=== PATIENT | male | born 1995 | race Two or more races ===

== ENCOUNTER 2019-07-16 20:00 | Emergency (ER) | payer SELFPAY ==
[~2019-07-16] VITALS: Ht 190.5 cm; Wt 89.8 kg
[2019-07-16 20:07] VITALS: BP 122/67
--- NOTE | 2019-07-16 20:45 | NUR ---
xray at bedside
== END 2019-07-16 21:42 | disposition home or self-care (01) ==
LOC: ER 20:03
DX: S93.502A Unspecified sprain of left great toe, initial encounter (principal); X58.XXXA Exposure to other specified factors, initial encounter; Y93.51 Activity, roller skating (inline) and skateboarding; Y92.331 Roller skating rink as the place of occurrence of the external cause; Y99.8 Other external cause status
CPT/HCPCS: 73660-TC

== ENCOUNTER 2019-08-16 09:52 | Emergency (ER) | payer SELFPAY ==
[~2019-08-16] VITALS: Ht 188 cm; Wt 90.7 kg
--- NOTE | 2019-08-16 10:05 | NUR ---
CAME IN FOR R KNEE PAIN S/P RUNNING 3 DAYS AGO, HOOKED TO MONITOR, PROVIDED W WARM BLANKET, PATIENT AOx4 , BREATHING EVEN AND UNLABORED, AWAITING MD DONALD. KEPT SAFE AND COMFORTABLE.
--- NOTE | 2019-08-16 10:18 | NUR ---
DR CHAVEZ AT BEDSIDE
--- NOTE | 2019-08-16 10:48 | NUR ---
Patient discharged to home in stable condition. Written and verbal after care instructions given. Patient verbalizes understanding of instruction.
[2019-08-16 10:55] VITALS: BP 134/71
== END 2019-08-16 10:48 | disposition home or self-care (01) ==
LOC: ER 09:56
DX: S83.8X1A Sprain of other specified parts of right knee, initial encounter (principal); X58.XXXA Exposure to other specified factors, initial encounter; Y93.02 Activity, running; Y92.89 Other specified places as the place of occurrence of the external cause; Y99.8 Other external cause status